=== PATIENT | female | born 1995 | race Caucasian/White ===

== ENCOUNTER 2023-07-18 07:09 | Day surgery (SDC) | payer OTHER ==
[2023-07-18 07:43] VITALS: BMI 42.3
[2023-07-18] MEDS ORDERED: hydrALAZINE 20 MG/ML VIAL SLOW IVP PRN (08:41)
[2023-07-18 08:45] LABS: Bilirubin Neg (Negative); Blood, Urine Negative (Negative); Clarity Clear (Clear); Glucose, Urine (Dipstick) Normal (Negative); Ketone, Urine Negative (Negative); Leukocyte Negative (Negative); Nitrite Negative (Negative); Protein, Urine (Dipstick) Negative (Neg-Trace); Specific Gravity, Urine 1.005 (1.005-1.030); Urobilinogen Normal mg/dL (Less than 2)
[2023-07-18 08:56] LABS: Fetal Membranes Rupture No Membranes Rupture (No Rupture)
== END 2023-07-18 09:35 | disposition home or self-care (01) ==
LOC: CSHLD/OP 07:09
PROVIDERS: ATTEND Obstetrics & Gynecology
DX: O99.612 Diseases of the digestive system complicating pregnancy, second trimester (principal); K90.0 Celiac disease; O99.342 Other mental disorders complicating pregnancy, second trimester; F41.9 Anxiety disorder, unspecified; O26.892 Other specified pregnancy related conditions, second trimester; N32.81 Overactive bladder; Z03.71 Encounter for suspected problem with amniotic cavity and membrane ruled out; Z79.899 Other long term (current) drug therapy; Z88.8 Allergy status to other drugs, medicaments and biological substances
CPT/HCPCS: 81003; 84112; 87480; 87510; 87660